=== PATIENT | male | born 1975 | race Caucasian/White ===

== ENCOUNTER 2020-03-02 13:36 | Emergency (ER) | payer BC, SELFPAY ==
[2020-03-02 13:46] VITALS: BP 150/95; PULSE 95; RESP 20; TEMP 36.8; O2SAT 97; BMI 40.8
--- NOTE | 2020-03-02 14:03 | HMH.EDUTC ---
[facility] [place] Clinical Impression: Groin pain Qualifiers: Laterality: left Qualified Code(s): R10.32 - Left lower quadrant pain Disposition: Home, Self-Care Condition on Discharge: Good Instructions: DI for Abdominal Pain-Adult, Groin Strain, DI for Groin Strain Additional Instructions: Make sure to follow up with PCP for further treatment and evaluation *Return straight to ER if the pain returns Make sure to take it easy for the next several days Follow up as directed Straight to ER If any life threatening symptoms, or return of abdominal pain Referrals: Grabiel Greene MD [Primary Care Provider] - As needed Time of Disposition: 14:42 Medical Decision Making - Jose Inquiry Pt receiving controlled substance: No Jose was queried for this patient: No Vital Signs: 03/02/20 13:46 03/02/20 14:43 Temperature 98.2 F 98.7 F Temperature Source Oral Pulse Rate 95 H Pulse Rate [Left] 95 H Respiratory Rate 20 20 Blood Pressure 150/95 H Blood Pressure [Right Arm] 150/95 H Blood Pressure Mean [Right Arm] 113 Blood Pressure Source [Right Arm] Automatic Cuff Blood Pressure Position [Right Arm] Sitting 02 Sat by Pulse Oximetry 97 Oxygen Delivery Method Room Air - Lab Data Lab Results 03/02/20 14:25: Urine Color Yellow, Urine Appearance Clear, Urine pH 5.0, Ur Specific [place] 1.020, Urine Protein Negative, Urine Glucose (UA) 2+, Urine Ketones Trace, Urine Blood Negative, Urine Nitrate Negative, Urine Bilirubin Negative, Urine Urobilinogen 0.2, Ur Leukocyte Esterase Negative Medical Decision Narrative: Patient reports that he had pain in left lower abdomen/groin area that started yesterday after doing some heavy lifting at work and then last night it stopped hit a bump on mower earlier and pain started back again but has now stopped again Recommended further work up and transfer to ED for further work up with lab work and ct and patient declined transfer states that he didnt want to go through that right now he would call and make appointment with PCP and if pain returned or worsened he would go straight to ER States that at this time pain is gone after sitting down and resting. Patient aware of risk and still declined Patient advised to not do any heavy lifting or strenuous work until seen by PCP [facility] [place] - General Stated complaint: left side pain Time Seen by Provider: 03/02/20 14:03 Mode of Arrival: Ambulatory Source of Information: Significant Other Limitations: No Limitations Description of Symptoms (Recalled from Triage Doc. by RN): Left lower abdominal pain HEENT Symptoms (Recalled from RN notes): No Resp Symptoms (Recalled from RN notes): No Skin Symptoms (Recalled from RN notes): No MS Symptoms (Recalled from RN notes): No Functional Status (Recalled from RN notes): WNL - History of Present Illness Provider Complaint: Patient states that he did alot of heavy lifting yesterday of buckets full of rocks and felt like he might have pulled something in his left lower abdomial/groin area States that he felt sore and would hurt when he would sit down then felt better last night States that earlier he was riding a mower and hit a bump and the pain returned States that he has a history of umbilical hernia and wasnt sure if he may have strained himself or have another hernia in his groin States that he called his PCP and they was booked and couldnt get in so he came in here States that on the way here the pain stopped again and now he is no longer having any pain at this time - Related Data Allergies Allergy/AdvReac Type Severity Reaction Status Date / Time acetaminophen [From Tylenol] Allergy Intermediate Verified 03/02/20 13:59 - Worker's Comp Is this a Worker's Comp case?: No Is this an H Worker's Comp?: No Is this a [place] Worker's Comp?: No [facility] History - Hepatitis A Screen Drug use history?: No High risk sexual behaviors?: No History of sexually transmitted infection?: No Nickolas
[2020-03-02 14:26] LABS: Color,Urine Yellow (Yellow)
[2020-03-02 14:27] LABS: Apearance,Urine Clear (Clear); Protein,Urine Negative (Negative)
[2020-03-02 14:28] LABS: Glucose,Urine (UA) 2+ (Negative)
[2020-03-02 14:29] LABS: Bilirubin,Urine Negative (Negative); Blood, Urine Negative (Negative); Ketones,Urine TRACE (Negative); UTC Leukocyte Esterase,Urine Negative (Negative); UTC Nitrate,Urine Negative (Negative); Urobilinogen,Urine 0.2 EU/dl (0.2)
[2020-03-02 14:43] VITALS: BP 150/95; PULSE 95; RESP 20; TEMP 37.1; O2SAT 31
== END 2020-03-02 14:45 | disposition home or self-care (01) ==
PROVIDERS: Emergency Provider Nurse Practitioner; PCP Family Medicine
DX: R10.32 Left lower quadrant pain (principal)
CPT/HCPCS: 81003; 99201

== ENCOUNTER 2020-03-04 06:22 | Emergency (ER) | payer BC, SELFPAY ==
[2020-03-04 06:23] VITALS: BP 138/85; PULSE 102; RESP 16; TEMP 37; O2SAT 98; BMI 52.1
[2020-03-04 06:30] VITALS: BMI 40.8
--- NOTE | 2020-03-04 06:30 | CT_ITS ---
Procedure: CT ABDOMEN PELVIS WO CON Referring Doctor: Willie Merino Patient Age:44Y CLINICAL INDICATION: lower left flank pain 3 days worse last night now with nausea and pain with urination. DM COMPARISON: No exams were available for comparison TECHNIQUE: No IV nor oral contrast utilized Helical axial images obtained with axial sagittal and coronal reformats. All CT scans at the facility use one or more dose reduction, viz: automated exposure control, ma/kV adjustment per patient size (including targeted exams where dose is matched to indication, i.e. head), or iterative reconstruction technique. FINDINGS: Lower thorax: Minimal left lower lobe atelectasis/scarring on the initial slices. Right lower lobe: Peripheral pleural base nodule measuring up to 7 mm at its base x 4.4 mm height. This density noted on axial image 3 is sagittal image 41. Indeterminate character. Heart normal size. No pleural effusion ABDOMEN: Liver: Fatty liver. generous 24 cm length right lobe. Overall consider liver upper normal size the. Gallbladder: Nondistended. No radio opaque stones. Common duct normal Pancreas: Unremarkable no masses or peripancreatic fluid collections. Spleen: Nearly 15 cm length. Borderline/mild splenomegaly tract------- Left obstructive uropathy: 3.8 mm stone at The distal left ureter with mild dilatation of the left ureter and mild left hydronephrosis Slight left periureteral and perinephric hazy [id number] the obstructive uropathy on the left, doubt associated pyelonephritis but requires correlation Right kidney unremarkable. . The urinary bladder unremarkable.. Small prostate noted no calculi no wall thickening. The a few phleboliths at the pelvic basin. No free fluid pelvis GI tract no acute findings Stomach upper normal wall thickness most likely reflecting lack of distension. Small-bowel. Unremarkable. Terminal ileum normal. Appendix normal Large bowel: Diverticulosis seen throughout the sigmoid old and descending colon with a few diverticula in the transverse colon and right colon as well. No evidence of acute diverticulitis. Peritoneum: No abnormal fluid collections. No obvious inflammatory changes. No free air. Lymph nodes: No significant enlarged lymph nodes. Vasculature: No evidence of abdominal aortic aneurysm. No retroperitoneal findings. Bones: No acute fracture or findings Soft tissues.. Moderate size umbilical hernia containing fat only. It measures up to 7.7 cm height x 5.5 cm transverse times 3 cm AP. Small bilateral inguinal hernias containing fat. May be some minimal fluid associated with the left inguinal hernia is a no bowel loops no significant inflammation. IMPRESSION: 1. Distal Left Ureteral Stone with Mild Obstructive Uropathy On Left. Associated findings . This small distal left ureteral stone measuring 3.8 mm; located less than 1 cm above left UVJ . Mild periureteral/perinephric hazy appearance, reflects the left obstructive uropathy but associated UTI should be excluded 2. Colonic diverticulosis.-No acute diverticulitis evident . Appendix normal 3... Small indeterminate pleural based nodule posterior right chest 7 mm x 4.4 mm. 4. Other observations: . Hepatic steatosis/fatty liver with generous length right lobe . Borderline/mild splenomegaly . Moderate size fat containing umbilical hernia. . Bilateral fat containing inguinal hernias also noted. Dictated by: Mark Anthony Jurado MD 03/04/2020 11:39 Mark Anthony Jurado MD in [place] 03/04/2020 11:39
[2020-03-04 06:45] LABS: Basophils # 0.1 K/mm3 (0-0.2); Basophils % 0.5 % (0.1-2.0); Eosinophils # 0.2 K/mm3 (0.0-0.4); Eosinophils % 1.3 % (0.1-12.0); Lymphocytes % 12.4 % (10-50); Mean Corpuscular HGB Conc 34.7 g/dL (31.8-35.4); Mean Corpuscular Hemoglobin 31.1 pg (27.0-31.2); Mean Corpuscular Volume 89.7 fl (80-94); Mean Platelet Volume 7.6 fl (7.4-10.4); Monocytes # 0.8 K/mm3 (0.1-1.0); Monocytes % 5.2 % (1.7-9.3); Neutrophils # 12.9 K/mm3 (1.8-7.8); Neutrophils % 80.6 % (37.0-80.0); Platelet Count 260 K/mm3 (142-424); Red Blood Count 5.14 M/mm3 (4.60-6.20); Red Cell Distribution Width 13.2 % (11.5-17.5)
[2020-03-04 06:46] LABS: Microscopic, Urine URINE MICROSCOPIC (MICROSCOPIC)
[2020-03-04 06:48] LABS: MANUAL DIFFERENTIAL MANUAL DIFFERENTIAL (MANUAL DIFF)
[2020-03-04 06:53] LABS: Chloride 99 mmol/L (98-107); Potassium 4.7 mmoL/L (3.5-5.1); Sodium 135 mmol/L (136-145)
[2020-03-04 06:53] LABS: Appearance,Urine CLEAR (Clear); Bilirubin,Urine Negative (Negative); Blood, Urine Negative (Negative); Color,Urine YELLOW (Yellow); Glucose,Urine (UA) 3+ (Negative); Ketones,Urine Negative (Negative); Leukocyte Esterase,Urine Negative (Negative); Nitrate,Urine Negative (Negative); PH,Urine 6.5 (5.0-8.5); Protein,Urine Negative (Negative); Urobilinogen,Urine 0.2 EU/dl (0.2)
--- NOTE | 2020-03-04 06:53 | PC.NURSE ---
Pt gone to CT
[2020-03-04 06:55] LABS: Amylase 41 U/L (30-110)
[2020-03-04 06:56] LABS: Alanine Aminotransferase 40 U/L (12-78); Albumin Level 4.3 g/dl (3.5-5.0); Albumin/Globulin Ratio 1.3 (1.1-1.8); Alkaline Phosphatase 70 U/L (38-126); Anion Gap 15.7 mEq/L (5-15); Aspartate Amino Transferase 24 U/L (17-59); Bilirubin,Total 0.7 mg/dl (0.2-1.3); Blood Urea Nitrogen 21 mg/dl (9-20); Calcium 9.8 mg/dl (8.4-10.2); Carbon Dioxide 25 mmol/L (22.0-30.0); Creatinine Clearance Estimated 133 mL/min (50-200); Estimated Glomerular Filt Rate 60 ml/min (>60); GFR (African American) 73 ML/MIN (>60); Globulin 3.2 g/dL (1.3-3.2); Glucose 296 mg/dl (74-100); Lipase 73 U/L (23-300); Total Protein,Serum 7.5 g/dl (6.3-8.2)
[2020-03-04 06:56] LABS: Amorphous Sediment,Urine Trace /lpf; WBC,Urine Occasional #/hpf (0-3)
[2020-03-04 06:59] LABS: Lymphocytes % 9 % (10-50); Monocytes % 2 % (2-9); Neutrophils % 82 % (42-76); Platelet Estimate Normal; RBC Morphology Normal; Total Cells Counted 100
--- NOTE | 2020-03-04 07:16 | HMH.EDGENADL ---
ED Disposition Clinical Impression: Renal colic on left side, Renal insufficiency Diabetes Qualifiers: Diabetes mellitus type: type 2 Diabetes mellitus intermediate insulin use: without termite helper use Diabetes mellitus complication status: with other specified complication Qualified Code(s): E11.69 - Type 2 diabetes mellitus with other specified complication Disposition: Home, Self-Care Condition on Discharge: Fair Instructions: DI for Kidney Stones Additional Instructions: fluids and see pcp and urology for follow up Prescriptions: Tamsulosin HCl [Flomax 0.4mg capsule] 0.4 mg PO HS #10 cap Prescription Printed Referrals: Grabiel Greene MD [Primary Care Provider] - - Critical Care Critical Care Time: No Attestation: On 03/04/20, the high probability of a clinically significant, sudden or life threatening deterioration of the following system(s) required my full and direct attention, intervention and personal management. The time I documented below is in addition to time spent performing reported procedures but includes the following listed in this critical care notation. Medical Decision Making - Medical Records Medical records reviewed: Yes: I reviewed the patient's medical records. - Jose Inquiry Pt receiving controlled substance: No Vital Signs: 03/04/20 06:23 Temperature 98.6 F Temperature Source Oral Pulse Rate [Left Radial] 102 H Respiratory Rate 16 Blood Pressure [Right Arm] 138/85 Blood Pressure Mean [Right Arm] 102 Blood Pressure Source [Right Arm] Automatic Cuff Blood Pressure Position [Right Arm] Sitting 02 Sat by Pulse Oximetry 98 Oxygen Delivery Method Room Air - Lab Data Lab results reviewed: Yes: I reviewed the patient's lab results. Lab Results 03/04/20 06:25: Urine Color Yellow, Urine Appearance Clear, Urine pH 6.5, Ur Specific [place] 1.020, Urine Protein Negative, Urine Glucose (UA) 3+, Urine Ketones Negative, Urine Blood Negative, Urine Nitrate Negative, Urine Bilirubin Negative, Urine Urobilinogen 0.2, Ur Leukocyte Esterase Negative, Urine WBC Occasional, Amorphous Sediment Trace 03/04/20 06:30: WBC 16.0 H, RBC 5.14, Hgb 16.0, Hct 46.0, MCV 89.7, MCH 31.1, MCHC 34.7, RDW 13.2, Plt Count 260, MPV 7.6, Neut % (Auto) 80.6 H, Lymph % (Auto) 12.4, [place] % (Auto) 5.2, Eos % (Auto) 1.3, Baso % (Auto) 0.5, Neut # (Auto) 12.9 H, Lymph # (Auto) 2.0, [place] # (Auto) 0.8, Eos # (Auto) 0.2, Baso # (Auto) 0.1, Total Counted 100, Neutrophils % (Manual) 82 H, Band Neutrophils % 7.0, Lymphocytes % (Manual) 9 L, Monocytes % (Manual) 2, Platelet Estimate Normal, RBC Morphology Normal 03/04/20 06:30: Sodium 135 L, Potassium 4.7, Chloride 99, Carbon Dioxide 25, Anion Gap 15.7 H, BUN 21 H, Creatinine 1.30 H, Estimated Creat Clear 133, Estimated GFR 60, Est GFR ( Amer) 73, Glucose 296 H, Calcium 9.8, Total Bilirubin 0.7, AST 24, ALT 40, Alkaline Phosphatase 70, Total Protein 7.5, Albumin 4.3, Globulin 3.2, Albumin/Globulin Ratio 1.3, Amylase 41, Lipase 73 Result diagrams: 03/04/20 06:30 03/04/20 06:30 Orders (Tests/Meds): ED MEDICATIONS Generic Name Dose Route Start Last Admin Trade Name Freq PRN Reason Stop Dose Admin Sodium Chloride 1,000 mls @ 999 mls/hr 03/04/20 06:45 03/04/20 06:36 Sod Chlor 0.9% 1000ml Bag IV 03/04/20 07:45 999 mls/hr .[id number] MONTRELL Administration Tamsulosin HCl 0.4 mg 03/04/20 21:00 Flomax 0.4mg Capsule PO 04/03/20 20:59 HS MONTRELL Discontinued Medications Generic Name Dose Route Start Last Admin Trade Name Freq PRN Reason Stop Dose Admin Ketorolac Tromethamine 30 mg 03/04/20 06:44 03/04/20 06:57 Toradol 30mg/Ml Vial IV 03/04/20 06:45 30 mg ONCE ONE Administration Ondansetron HCl 4 mg 03/04/20 06:44 03/04/20 06:57 Zofran 4mg/2ml Vial IV 03/04/20 06:45 4 mg ONCE ONE Administration ORDERS Category Date Time Status CT abdomen pelvis wo con Stat Cat Scan 03/04/20 06:30 Taken Hemoglobin A1C Stat Lab 09/20/20 07:
[2020-03-04 07:36] LABS: Hemoglobin A1C 9.8 % (4.0-6.0)
[2020-03-04 07:56] VITALS: BP 148/89; PULSE 95; RESP 18; TEMP 36.8; O2SAT 97
== END 2020-03-04 07:56 | disposition home or self-care (01) ==
PROVIDERS: Emergency Provider Emergency Medicine; PCP Family Medicine
DX: N23 Unspecified renal colic (principal); N28.9 Disorder of kidney and ureter, unspecified; E11.65 Type 2 diabetes mellitus with hyperglycemia; Z79.84 Long term (current) use of oral hypoglycemic drugs; Z79.899 Other long term (current) drug therapy
CPT/HCPCS: 74176; 80053; 81001; 82150; 83036; 83690; 85007; 85025; 96365; 96375; 99283; J2405

== ENCOUNTER → 2020-03-06 15:11 | Outpatient (CLI) | payer BC, SELFPAY ==
--- NOTE | 2020-03-06 15:19 | XR_ITS ---
PROCEDURE: XR KUB CLINICAL INDICATION: kidney stone COMPARISON: CT CT ABDOMEN PELVIS WO CON from 03/04/2020 FINDINGS: Nonspecific bowel gas pattern. No intestinal obstruction. No obvious renal calculi. There is a 3 mm calcific density in the left pelvic region which may represent previously noted distal ureteral stone. There are other calcific densities in the pelvis which may be related to phleboliths. IMPRESSION: 3 mm left ureterovesical junction stone Dictated by: Ketan Jacob MD 03/06/2020 16:35 Ketan Jacob MD in [place] 03/06/2020 16:35
== END ==
PROVIDERS: PCP Family Medicine; Visit Provider Urology
DX: N20.1 Calculus of ureter (principal)
CPT/HCPCS: 74018

== ENCOUNTER → 2020-03-13 07:38 | Outpatient (CLI) | payer BC, SELFPAY ==
--- NOTE | 2020-03-13 07:49 | XR_ITS ---
PROCEDURE: XR KUB CLINICAL INDICATION: kidney stone Follow-up left ureteral stone COMPARISON: CT CT ABDOMEN PELVIS WO CON from 03/04/2020 FINDINGS: A 3 mm calcific density is present in the left pelvic region which may represent a persistent ureterovesical junction stone. This is triangular-shaped in nature. Other calcific densities are present in the pelvis consistent with phleboliths. IMPRESSION: 3 mm left ureterovesical junction stone Dictated by: Ketan Jacob MD 03/14/2020 06:06 Ketan Jacob MD in [place] 03/14/2020 06:06
== END ==
PROVIDERS: PCP Family Medicine; Visit Provider Urology
DX: N20.0 Calculus of kidney (principal)
CPT/HCPCS: 74018

== ENCOUNTER → 2020-03-28 14:27 | Outpatient (CLI) | payer BC, SELFPAY ==
[2020-03-28 16:13] VITALS: BMI 40.4
== END ==
PROVIDERS: PCP Family Medicine; Visit Provider Family Medicine
DX: Z71.3 Dietary counseling and surveillance (principal); E11.9 Type 2 diabetes mellitus without complications; Z79.84 Long term (current) use of oral hypoglycemic drugs
CPT/HCPCS: 97802

== ENCOUNTER → 2020-04-09 12:22 | Outpatient (CLI) | payer BC, SELFPAY ==
--- NOTE | 2020-04-09 12:29 | XR_ITS ---
PROCEDURE: XR KUB CLINICAL INDICATION: ureteral stone COMPARISON: CT CT ABDOMEN PELVIS WO CON from 03/04/2020 FINDINGS: There are calcific densities in the right pelvic region consistent with phleboliths. There was a distal ureteral calculus noted on the left on recent CT scan which is not confirmed on today's exam. IMPRESSION: Negative KUB Dictated by: Ketan Jacob MD 04/09/2020 12:54 Ketan Jacob MD in [place] 04/09/2020 12:54
== END ==
PROVIDERS: PCP Family Medicine; Visit Provider Pathology Anatomic Pathology & Clinical Pathology
DX: N20.1 Calculus of ureter (principal)
CPT/HCPCS: 74018

== ENCOUNTER → 2021-03-04 14:13 | Outpatient (CLI) | payer OTHER, SELFPAY ==
[2021-03-04 14:24] LABS: Basophils # 0.1 K/mm3 (0-0.2); Basophils % 0.9 % (0.1-2.0); Eosinophils # 0.3 K/mm3 (0.0-0.4); Hematocrit 49.7 % (42.0-52.0); Hemoglobin 16.8 g/dL (14.1-18.0); Lymphocytes # 2.1 K/mm3 (0.7-4.5); Lymphocytes % 22.7 % (10-50); Mean Corpuscular HGB Conc 33.7 g/dL (31.8-35.4); Mean Corpuscular Hemoglobin 30.3 pg (27.0-31.2); Mean Corpuscular Volume 89.9 fl (80-94); Mean Platelet Volume 8.5 fl (7.4-10.4); Monocytes # 0.4 K/mm3 (0.1-1.0); Monocytes % 3.8 % (1.7-9.3); Neutrophils # 6.5 K/mm3 (1.8-7.8); Neutrophils % 69.5 % (37.0-80.0); Platelet Count 266 K/mm3 (142-424); Red Blood Count 5.53 M/mm3 (4.60-6.20); Red Cell Distribution Width 12.9 % (11.5-17.5); White Blood Count 9.3 K/mm3 (4.8-10.8)
[2021-03-04 14:27] LABS: Chloride 102 mmol/L (98-107); Potassium 4.3 mmoL/L (3.5-5.1); Sodium 138 mmol/L (136-145)
[2021-03-04 14:29] LABS: Alanine Aminotransferase 30 U/L (12-78); Anion Gap 18.3 mEq/L (5-15); Aspartate Amino Transferase 24 U/L (17-59); Blood Urea Nitrogen 17 mg/dl (9-20); Carbon Dioxide 22 mmol/L (22.0-30.0); Estimated Glomerular Filt Rate 105 ml/min (>60); GFR (African American) 126 ML/MIN (>60)
[2021-03-04 14:30] LABS: Albumin Level 4.6 g/dl (3.5-5.0); Albumin/Globulin Ratio 1.6 (1.1-1.8); Alkaline Phosphatase 115 U/L (38-126); Bilirubin,Total 0.5 mg/dl (0.2-1.3); Calcium 9.8 mg/dl (8.4-10.2); Chol/HDL Ratio 5.2 (1-3.5); Cholesterol 161 mg/dl (140-200); Globulin 2.9 g/dL (1.3-3.2); Glucose 220 mg/dl (74-100); HDL Cholesterol 31 mg/dl (40-60); Total Protein,Serum 7.5 g/dl (6.3-8.2)
[2021-03-04 14:37] LABS: Triglycerides 462 mg/dl (30-150)
[2021-03-04 14:41] LABS: Direct LDL Cholesterol 60.47 mg/dL (100-129)
[2021-03-04 15:01] LABS: Thyroid Stimulating Hormone 3.52 uIU/mL (0.465-4.68)
[2021-03-04 15:08] LABS: Hemoglobin A1C 11.3 % (4.0-6.0)
[2021-03-06 08:28] LABS: PSA, Free 0.17 ng/mL; Prostate Specific Ag 0.7 ng/mL (0.0-4.0)
== END ==
PROVIDERS: Visit Provider Family Medicine
DX: Z00.00 Encounter for general adult medical examination without abnormal findings (principal); E11.9 Type 2 diabetes mellitus without complications; I10 Essential (primary) hypertension; E78.5 Hyperlipidemia, unspecified; Z79.84 Long term (current) use of oral hypoglycemic drugs
CPT/HCPCS: 80053; 80061; 82043; 83036; 84153; 84154; 84436; 84443; 85025

== ENCOUNTER → 2021-10-03 11:51 | Outpatient (CLI) | payer OTHER, SELFPAY ==
[2021-10-01 14:19] LABS: Hemoglobin A1C 8.4 % (4.0-6.0)
== END ==
LOC: LAB.DROPOF 11:52
PROVIDERS: PCP Family Medicine; Visit Provider Family Medicine
DX: E11.9 Type 2 diabetes mellitus without complications (principal); Z79.84 Long term (current) use of oral hypoglycemic drugs
CPT/HCPCS: 83036

== ENCOUNTER → 2022-06-24 09:30 | Outpatient (CLI) | payer OTHER, SELFPAY ==
[2022-06-24 14:07] LABS: Alanine Aminotransferase 42 U/L (12-78); Albumin Level 4.5 g/dl (3.5-5.0); Albumin/Globulin Ratio 1.7 (1.1-1.8); Alkaline Phosphatase 143 U/L (38-126); Anion Gap 15.1 mEq/L (5-15); Aspartate Amino Transferase 33 U/L (17-59); Bilirubin,Total 0.5 mg/dl (0.2-1.3); Blood Urea Nitrogen 15 mg/dl (9-20); Calcium 9.2 mg/dl (8.4-10.2); Carbon Dioxide 24 mmol/L (22.0-30.0); Chloride 101 mmol/L (98-107); Cholesterol 168 mg/dl (140-200); Estimated Glomerular Filt Rate 104 ml/min (>60); GFR (African American) 125 ML/MIN (>60); Globulin 2.7 g/dL (1.3-3.2); Glucose 346 mg/dl (74-100); HDL Cholesterol 24 mg/dl (40-60); Potassium 4.1 mmoL/L (3.5-5.1); Sodium 136 mmol/L (136-145); Total Protein,Serum 7.2 g/dl (6.3-8.2)
[2022-06-24 14:17] LABS: Triglycerides 803 mg/dl (30-150)
[2022-06-24 14:18] LABS: Direct LDL Cholesterol 36.01 mg/dL (100-129)
== END ==
LOC: LAB.DROPOF 14:25
PROVIDERS: PCP Family Medicine; Visit Provider Family Medicine
DX: I10 Essential (primary) hypertension (principal); E11.9 Type 2 diabetes mellitus without complications; E66.9 Obesity, unspecified; Z68.38 Body mass index [BMI] 38.0-38.9, adult; Z79.84 Long term (current) use of oral hypoglycemic drugs
CPT/HCPCS: 80053; 80061; 83036

== ENCOUNTER 2023-09-29 10:39 | Outpatient (CLI) | payer SELFPAY ==
[2023-09-28 18:46] LABS: Basophils # 0.1 K/mm3 (0-0.2); Basophils % 0.6 % (0.1-2.0); Eosinophils # 0.2 K/mm3 (0.0-0.4); Eosinophils % 1.2 % (0.1-12.0); Hematocrit 44.4 % (42.0-52.0); Hemoglobin 14.4 g/dL (14.1-18.0); Lymphocytes # 1.9 K/mm3 (0.7-4.5); Lymphocytes % 13.9 % (10-50); Mean Corpuscular HGB Conc 32.4 g/dL (31.8-35.4); Mean Corpuscular Hemoglobin 29.8 pg (27.0-31.2); Mean Corpuscular Volume 91.8 fl (80-94); Mean Platelet Volume 8.8 fl (7.4-10.4); Monocytes # 0.5 K/mm3 (0.1-1.0); Monocytes % 3.8 % (1.7-9.3); Neutrophils # 11.1 K/mm3 (1.8-7.8); Neutrophils % 80.5 % (37.0-80.0); Platelet Count 290 K/mm3 (142-424); Red Blood Count 4.84 M/mm3 (4.60-6.20); White Blood Count 13.8 K/mm3 (4.8-10.8)
[2023-09-28 18:56] LABS: Chloride 109 mmol/L (98-107); Potassium 3.9 mmoL/L (3.5-5.1); Sodium 140 mmol/L (136-145)
[2023-09-28 18:58] LABS: Alanine Aminotransferase 31 U/L (12-78); Aspartate Amino Transferase 25 U/L (17-59); Blood Urea Nitrogen 14 mg/dl (9-20); Estimated Glomerular Filt Rate 80 ml/min (>60); GFR (African American) 97 ML/MIN (>60)
[2023-09-28 18:59] LABS: Albumin Level 4.1 g/dl (3.5-5.0); Albumin/Globulin Ratio 1.6 (1.1-1.8); Alkaline Phosphatase 87 U/L (38-126); Anion Gap 10.9 mEq/L (5-15); Bilirubin,Total 0.6 mg/dl (0.2-1.3); Calcium 9.3 mg/dl (8.4-10.2); Carbon Dioxide 24 mmol/L (22.0-30.0); Globulin 2.5 g/dL (1.3-3.2); Glucose 156 mg/dl (74-100); Total Protein,Serum 6.6 g/dl (6.3-8.2)
== END 2023-09-29 23:59 | disposition home or self-care (01) ==
LOC: LAB.DROPOF 10:39
PROVIDERS: PCP Nurse Practitioner; Visit Provider Nurse Practitioner
DX: R10.9 Unspecified abdominal pain (principal)
CPT/HCPCS: 80053; 85025

== ENCOUNTER 2024-10-12 08:24 | Outpatient (CLI) | payer SELFPAY ==
[2024-10-12 19:08] LABS: Alanine Aminotransferase 27 U/L (12-78); Albumin Level 4.3 g/dl (3.5-5.0); Albumin/Globulin Ratio 1.9 (1.1-1.8); Alkaline Phosphatase 171 U/L (38-126); Anion Gap 13.1 mEq/L (5-15); Aspartate Amino Transferase 24 U/L (17-59); Bilirubin,Total 0.6 mg/dl (0.2-1.3); Blood Urea Nitrogen 16 mg/dl (9-20); Calcium 9.6 mg/dl (8.4-10.2); Carbon Dioxide 22 mmol/L (22.0-30.0); Chloride 105 mmol/L (98-107); Chol/HDL Ratio 8.5 (1-3.5); Cholesterol 178 mg/dl (140-200); Estimated Glomerular Filt Rate 143 ml/min (>60); GFR (African American) 173 ML/MIN (>60); Globulin 2.3 g/dL (1.3-3.2); Glucose 360 mg/dl (74-100); HDL Cholesterol 21 mg/dl (40-60); Potassium 4.1 mmoL/L (3.5-5.1); Sodium 136 mmol/L (136-145); Total Protein,Serum 6.6 g/dl (6.3-8.2)
[2024-10-12 19:10] LABS: Creatinine,Urine Random 8 mg/dL (Not Estab.); Microalbumin < 6.000 mg/L (0-16.7)
[2024-10-12 19:23] LABS: Direct LDL Cholesterol < 30.00 mg/dL (100-129); Triglycerides 1032 mg/dl (30-150)
== END 2024-10-12 23:59 | disposition home or self-care (01) ==
LOC: LAB.DROPOF 10-14 08:25
PROVIDERS: PCP Family Medicine; Visit Provider Family Medicine
DX: E11.69 Type 2 diabetes mellitus with other specified complication (principal); I10 Essential (primary) hypertension; Z79.84 Long term (current) use of oral hypoglycemic drugs; Z79.4 Long term (current) use of insulin
CPT/HCPCS: 80053; 80061; 82043; 82570